=== PATIENT | male | born 1970 | race Caucasian/White ===

== ENCOUNTER 2016-04-23 09:14 | Outpatient (CLI) ==
--- NOTE | 2016-04-23 09:57 | US ---
EXAM: Ultrasound abdomen limited HISTORY: Right upper quadrant abdominal pain COMPARISON: None TECHNIQUE: Limited ultrasound abdomen right upper quadrant was performed FINDINGS: Portion pancreas appears normal with majority of pancreas obscured secondary to bowel gas shadowing. Liver is enlarged. Liver is diffusely increased in echogenicity with focal fatty spari ng near the gallbladder fossa. Portions of the liver obscured secondary to shadowing artifact. Gal lbladder is fluid-filled without gallbladder wall thickening, pericholecystic fluid, or shadowing ga llstones. No biliary duct dilation with the common bile duct measuring 0.4 cm. Right kidney measur es 10.2 cm in length without hydronephrosis. IMPRESSION: 1. Hepatic steatosis. Hepatomegaly. 2. No cholelithiasis or cholecystitis.
== END 2016-04-23 09:15 | disposition home or self-care (01) ==
LOC: RAD 09:14
PROVIDERS: ATTEND Family Medicine
DX: R10.11 Right upper quadrant pain (principal)

== ENCOUNTER 2016-04-29 08:22 | Outpatient (CLI) ==
--- NOTE | 2016-04-29 11:31 | NM ---
EXAM: Hepatobiliary scan HISTORY: Right upper quadrant pain. COMPARISON: None of this type. PROCEDURE: The patient was injected with 5.2 mCi of 99mTc mebrofenin intravenously. Images of the a bdomen were obtained immediately and at intervals for 30 minutes. Additional images were obtained a t 45 and 60 minutes. The patient was then injected with 2 mcg of CCK by slow infusion while images o f the gallbladder were obtained to assess gallbladder contraction. The patient reported minimal pain with administration of CCK. FINDINGS: Sequential images demonstrate normal uptake of tracer into the liver. Activity is seen in the intrahepatic biliary ducts at about 10 minutes. The activity appears in the gallbladder at abo ut 10 minutes. Subsequent images demonstrate increasing activity in the gallbladder. Activity firs t appears in the small bowel at 25 minutes. The gallbladder ejection fraction is 58% . IMPRESSION: 1.Normal hepatobiliary scan. 2.The gallbladder ejection fraction is 58% (normal).
== END 2016-04-29 08:23 | disposition home or self-care (01) ==
LOC: RAD 08:22
PROVIDERS: ATTEND Family Medicine
DX: R10.11 Right upper quadrant pain (principal)

== ENCOUNTER 2018-07-01 14:31 | Outpatient (CLI) | END 2018-07-01 14:32 | disposition home or self-care (01) | LOC: LAB 14:31 | PROVIDERS: ATTEND Family Medicine | DX: R19.7 Diarrhea, unspecified (principal) | CPT/HCPCS: 36415 ==